=== PATIENT | female | born 1985 | race Caucasian/White ===

== ENCOUNTER → 2017-04-14 20:41 | Outpatient (CLI) | payer OTHER | END | disposition home or self-care (01) | LOC: D.MAMMO 13:30 | DX: N60.01 Solitary cyst of right breast (principal) ==

== ENCOUNTER → 2017-05-27 08:53 | Outpatient (CLI) | payer OTHER ==
[~2017-05-27 08:53] MED LIST: HYDROCODONE-APA1 TAB PO
[2017-06-21 06:18] VITALS: BMI 25.5
== END | disposition home or self-care (01) ==
LOC: D.US 05-13 11:00
DX: N63.14 Unspecified lump in the right breast, lower inner quadrant (principal)

== ENCOUNTER 2017-06-21 05:32 | Day surgery (SDC) | payer OTHER ==
[~2017-06-21] VITALS: Ht 157.5 cm; Wt 63.0 kg
--- NOTE | ~2017-06-21 | OP ---
PATIENT NAME: HAN BERNSTEIN MEDICAL RECORD: [id number] :85 LOCATION:[facility] ADMISSION DATE: SURGEON: RICHY VILLANEUVA MD DATE OF OPERATION: 06/21/2017 PREOPERATIVE DIAGNOSES: A 2 cm right breast fibroadenoma. POSTOPERATIVE DIAGNOSES: A 2 cm right breast fibroadenoma. PROCEDURE: Excision of right breast fibroadenoma. SURGEON: Richy Villanueva MD REPORT OF PROCEDURE: The patient's right breast was prepped and draped in sterile fashion. The mass was palpable at about the 5 o'clock position right at the nipple areolar complex. A semicircular incision was made on the inferior aspect of the nipple areolar complex. The subcutaneous tissues were transected using electrocautery and we dissected around the firm mass of tissue. Once this mass was completely excised, it was sent off for permanent specimen. Any bleeding from the wound bed was treated with electrocautery. The subcutaneous tissues were irrigated out and then reapproximated with interrupted 3-0 Vicryl. A 10 mL of 0.25% Marcaine plain were infused into the surrounding tissues and then the skin incision was closed with subcutaneous 5-0 Monocryl. COMPLICATIONS: None. CONDITION: Stable. ANESTHESIA: General endotracheal and local. BLOOD LOSS: Minimal. TRANSINT:[id number] Voice Confirmation ID: [id number] DOCUMENT ID: [id number] RICHY VILLANUEVA MD at 1052 CC: MAURO PISANO MD [id number] DICTATION DATE: 06/21/17 0836 LOCOMOTIVE OILER: 06/21/17 1207 [facility] 06/21/17 [place] [id number]
[2017-06-21 06:18] VITALS: BP 120/73; Ht 157.5 cm; Wt 63.0 kg
[2017-06-21 06:38] LABS: HCG URINE NEGATIVE (NEGATIVE)
[2017-06-21 06:46] LABS: BASOPHILS 0.4 % (0-2); EOSINOPHILS 6.7 % (0-7); HEMATOCRIT 41.1 % (36.0-48.0); HEMOGLOBIN 14.1 g/dL (12-16); IMMATURE GRANULOCYTES 0.1 % (0-5); LYMPHOCYTES 39.5 % (15-50); MCH 31.2 pg (26.0-34.0); MCHC 34.3 g/dL (31.0-37.0); MCV 90.9 fL (80.0-100.0); MEAN PLATELET VOLUME 9.6 fL (7.4-10.4); MONOCYTES 8.3 % (2-11); PLATELET COUNT 295 10x3/uL (130-400); RBC 4.52 10x6/uL (4.00-5.40); RDW 12.8 % (11.5-14.5)
[2017-06-21 07:15] LABS: CALC OSMOLALITY 280 mosm/kg (275-300); CALCIUM 8.6 mg/dL (8.5-10.1); CARBON DIOXIDE 22.5 mmol/L (21.0-32.0); CHLORIDE - SERUM 108 mmol/L (98-107); CREATININE - SERUM 0.9 mg/dL (0.6-1.3); GLUCOSE 86 mg/dL (74-106); SODIUM 142 mmol/L (136-145); UREA NITROGEN 10 mg/dL (7-18); eGFR NON AFRICAN AMERICAN 77 mL/min (90-120)
[2017-06-21] MEDS ORDERED: HYDROCODONE-APA1 TAB PO (08:33)
== END 2017-06-21 10:20 | disposition home or self-care (01) ==
LOC: D.OPS 05:32
PROVIDERS: Surgery
DX: D24.1 Benign neoplasm of right breast (principal); Z01.812 Encounter for preprocedural laboratory examination